=== PATIENT | female | born 1990 | race Caucasian/White ===

== ENCOUNTER 2017-04-21 14:02 | Day surgery (SDC) | payer BC, OTHER ==
[~2017-04-21] VITALS: Ht 167.6 cm; Wt 77.1 kg
[~2017-04-21 14:02] MED LIST: MOTRIN800 MG PO; PERCOCET 5/31 TABLET PO; PRENATAL TABLE1 EAC3 PO; TUMS500 MG PO; TYLENOL EXTRA500 MG PO; ZOLOFT50 MG PO
[2017-04-21] MEDS ORDERED: IBUPROFEN800 MG PO (14:19)
[2017-04-21] MEDS ORDERED: ENDOCET 5-3251 EACH PO (14:19)
[2017-04-21 14:32] VITALS: BP 115/69
[2017-04-21 14:38] LABS: EOSINOPHIL (%) 0 % (0-5); IMMATURE GRANULOCYTE (%) 0.3 % (0.0-0.7); INSTRUMENT ABS NEUTROPHIL CT 4.4 K/uL; LYMPHOCYTE COUNT 1.8 K/uL (1.0-2.8); MCH 31.8 PG (29.0-34.0); MCHC 34.4 G/DL (30.0-36.0); MCV 92.6 FL (83-99); MEAN PLAT.VOLUME 11.2 uM^3 (9.5-12.4); MONOCYTE (%) 7.5 % (3-12); MONOCYTE COUNT 0.5 K/uL (0-0.8); NEUTROPHIL (%) 64.8 % (45-76); NEUTROPHIL COUNT 4.4 K/uL (1.8-6.4); PLATELET COUNT 217 K/uL (156-360); RBC DIS.WIDTH-CV 11.7 % (11.8-14.6); RBC DIS.WIDTH-SD 39.6 % (39-53); RED BLOOD COUNT 4.21 M/uL (3.80-5.20); WHITE BLOOD COUNT 6.7 K/uL (4.1-10.2)
[2017-04-21 18:20] VITALS: BP 123/76
[2017-04-21 19:12] VITALS: BP 119/57
== END 2017-04-21 19:10 | disposition home or self-care (01) ==
LOC: SDC 14:02
PROVIDERS: Obstetrics & Gynecology Gynecology
PROC: 10D17ZZ Extraction of Products of Conception, Retained, Via Natural or Artificial Opening (ICD-10-PCS; principal; 2017-04-21)
DX: O02.1 Missed abortion (principal)
CPT/HCPCS: 85025; 86850; 86900; 86901; 88305; J1100; J1885; J2175; J2250; J2405; J2765; J3010